=== PATIENT | female | born 1990 | race Caucasian/White ===

== ENCOUNTER 2016-08-18 22:13 | Emergency (ER) | payer BC ==
[2016-08-18] MEDS ORDERED: KETOROLAC 30 MG/ML VIAL IVP ONE (22:28)
[2016-08-18] MEDS ORDERED: METOCLOPRAMIDE HCL 10 MG/2 ML VIAL IVP ONE (22:28)
[2016-08-18] MEDS ORDERED: DIPHENHYDRAMINE HCL IV 50 MG/ML VIAL IVP ONE (22:28)
[2016-08-18] MEDS ORDERED: 0.9 % SODIUM CHLORIDE 1,000 ML BAG IV ONE (22:28)
--- NOTE | 2016-08-18 22:36 | Emergency Department Record ---
History of Present Illness - General Chief Complaint: Headache Migraine Stated Complaint: JOHNSON Time Seen by Provider: 08/18/16 22:25 Source: Patient Mode of Arrival: Ambulatory Limitations: No limitations - History of Present Illness Initial Comments: 26 yo female presents with a headache. She has a history of migraines and follows at [facility]. This migraine started this morning and is typical of her migraines. She has light sensitivity and nausea. No fevers. No new or atypical symptoms. Her last appointment with her neurologist was 6 months ago. MD Complaint: Headache, "Migraine" Onset/Timin -: Hour(s) Onset Description: Gradual, Awoke with symptoms Location: Frontal, Neck, Right Severity: Moderate Severity scale (1-10): 10 Quality: Aching, Sharp, Throbbing, Similar to previous headaches Consistency: Constant Improves With: Nothing Worsens With: Light Treatments Prior to Arrival: Ibuprofen - Related Data Previous Rx's Medication Instructions Recorded Metoclopramide HCl [Reglan] 10 mg PO Q12H PRN #15 tablet 08/18/16 Allergies Allergy/AdvReac Type Severity Reaction Status Date / Time No Known Drug Allergies Allergy Verified 08/18/16 22:17 Travel Screening - Travel/Exposure Within Last 30 Days Have you traveled within the last 30 days?: No - Travel/Exposure Within Last Year Have you traveled outside the [place] in the last year?: No - Additonal Travel Details Have you been exposed to anyone with a communicable illness?: No - Travel Symptoms Symptom Screening: None Review of Systems Constitutional: Denies: Chills, Fever, Malaise, Weakness Eyes: Denies: Eye discharge, Eye pain, Photophobia, Vision change ENT: Denies: Congestion, Throat pain Respiratory: Denies: Cough, Dyspnea, Hemoptysis, Stridor, Wheezes Cardiovascular: Denies: Chest pain, Palpitations, Syncope Endocrine: Denies: Fatigue Gastrointestinal: Reports: Nausea. Denies: Abdominal pain, Diarrhea, Vomiting Genitourinary: Denies: Dysuria, Urgency Musculoskeletal: Denies: Arthralgia, Back pain, Joint swelling, Myalgia, Neck pain Skin: Denies: Bruising, Change in color, Rash Neurological: Reports: Headache Psychiatric: Denies: Anxiety Hematological/Lymphatic: Denies: Blood Clots, Easy bleeding, Easy bruising, Swollen glands Past Medical History - SOCIAL HISTORY Smoking Status: Current every day smoker Alcohol Use: Rare Drug Use: None - RESPIRATORY Hx Respiratory Disorders: Yes Hx Asthma: Yes - CARDIOVASCULAR Hx Cardio Disorders: No - NEURO Hx Neuro Disorders: Yes Hx of Migraines: Yes - GI Hx GI Disorders: Yes Hx Abdominal Pain: Yes (periumbilical) Hx Nausea/Vomiting: Yes Hx Wt Loss/Wt Gain: Yes (gained 40lbs in 2 years) Comment:: diarrhea - Hx Genitourinary Disorders: No - ENDOCRINE Hx Endocrine Disorders: No - MUSCULOSKELETAL Hx Musculoskeletal Disorders: Yes - PSYCH Hx Psych Problems: Yes Hx Anxiety: Yes Hx Depression: Yes - HEMATOLOGY/ONCOLOGY Hx Hematology/Oncology Disorders: Yes Hx Bruising: Yes Family Medical History Any Significant Family History?: Yes Family Hx Comment (NOT TO BE USED IN PLACE OF ITEMS BELOW): dad-parkinson's Hx Cancer: Mother *Cancer Comment: cancerous colon polyps Hx Diabetes: Grandparents Physical Exam - General General Appearance: Alert, Oriented x3, Cooperative, No acute distress Limitations: No limitations - Head Head exam: Atraumatic, Normal inspection - Eye Eye exam: Normal appearance, PERRL. negative: Conjunctival injection, Scleral icterus - ENT ENT exam: Normal exam, Mucous membranes moist, Normal external ear exam, Normal orophraynx Ear exam: Normal external inspection. negative: External canal tenderness Nasal Exam: Normal inspection. negative: Discharge, Sinus tenderness Mouth exam: Normal external inspection, Tongue normal Teeth exam: Normal inspection. negative: Dental caries Throat exam: Normal inspection. negative: Tonsillar erythema, Tonsillar exudate - Neck Neck exam: Normal inspection, Full ROM. negative: Tenderness - Respiratory Respiratory exam: Normal lung sounds bilaterally. negative: Respiratory distress - Cardiovascular Cardiovascular Exam: Regular rate, Normal rhythm, Normal heart sounds - GI/Abdominal GI/Abdominal exam: Soft, Normal bowel sounds. negative: Tenderness - Rectal Rectal exam: Deferred - exam: Deferred - Extremities Extremities exam: Normal inspection, Full ROM, Normal capillary refill. negative: Tenderness - Back Back exam: Reports: Normal inspection, Full ROM. Denies: Muscle spasm, Rash noted, Tenderness - Neurological Neurological exam: Alert, CN II-XII intact, Normal gait, Oriented X3. negative : Altered, Motor sensory deficit - Psychiatric Psychiatric exam: Normal affect, Normal mood. negative: Agitated, Anxious - Skin Skin exam: Dry, Intact, Normal color, Warm Course Vital Signs 08/18/16 22:17 Temperature 97.9 F Pulse Rate 79 Respiratory 18 Rate Blood Pressure 110/73 Pulse Ox 99 - Reevaluation(s) Reevaluation #1: EMR reviewed from the previous ED visit including medications given 08/18/16 22:36 Reevaluation #2: The patient has gone from a 10 to a 1/0 She is much improved We discussed home care and followup with PCP as well as reasons to return to the ED 08/18/16 23:41 Disposition Disposition: Discharge Clinical Impression: Migraine Qualifiers: Migraine type: unspecified Status migrainosus presence: without status migrainosus Intractability: intractable Qualified Code(s): G43.919 - Migraine, unspecified, intractable, without status migrainosus Disposition: Home, Self-Care Condition: (1) Good Instructions: Migraine Headache (ED) Additional Instructions: Call your doctor for close followup Return if you have return of pain or concerns. Prescriptions: Metoclopramide HCl [Reglan] 10 mg PO Q12H PRN #15 tablet PRN Reason: Headache Forms: Patient Portal Access Time of Disposition: 23:42
== END 2016-08-18 23:54 | disposition home or self-care (01) ==
LOC: ER 22:13
DX: G43.919 Migraine, unspecified, intractable, without status migrainosus (principal); R11.0 Nausea; H53.149 Visual discomfort, unspecified
CPT/HCPCS: 99284 ×2; 96374; 96375; J1885; J1200; J2765; J7030

== ENCOUNTER 2017-08-11 23:07 | Emergency (ER) | payer BC, MEDICAID ==
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
[2017-08-11] MEDS ORDERED: 0.9 % SODIUM CHLORIDE 1,000 ML BAG IV ONE (23:31)
[2017-08-11 23:34] LABS: BASO % 0.6 % (0-6); GRAN % 57.1 % (47-80); HEMATOCRIT 41.1 % (35.0-47.0); LYMPH % 28.9 % (16-45); MEAN CELL VOLUME 90.5 fl (81-97); MEAN CORPUSCULAR HEMOGLOBIN 30.8 pg (27-33); MEAN CORPUSCULAR HGB CONC 34.1 g/dl (32-36); MEAN PLATELET VOLUME 11.1 fl (7.4-10.4); MONO % 11.4 % (0-9); PLATELET COUNT 279 K/uL (130-400); RED BLOOD COUNT 4.54 M/uL (3.80-5.40); RED CELL DISTRIBUTION WIDTH 13.3 % (11.5-14.5); WHITE BLOOD COUNT W/O DIFF 12.5 K/uL (4.2-12.2)
[2017-08-11 23:55] LABS: URINE APPEARANCE CLEAR; URINE BILIRUBIN NEGATIVE (NEGATIVE); URINE BLOOD NEGATIVE (NEGATIVE); URINE COLOR YELLOW; URINE GLUCOSE (UA) NEGATIVE (NEGATIVE); URINE KETONE NEGATIVE (NEGATIVE); URINE LEUKOCYTE ESTERASE NEGATIVE (NEGATIVE); URINE NITRITE NEGATIVE (NEGATIVE); URINE PROTEIN NEGATIVE (NEGATIVE); URINE UROBILINOGEN 0.2 E.U./dL (0.20 - 1.00)
[2017-08-11 23:57] LABS: HCG,QUALITATIVE URINE NEGATIVE (NEGATIVE)
[2017-08-11 23:58] LABS: BLOOD UREA NITROGEN 15 mg/dL (6-20); CREATININE 0.6 mg/dL (0.5-0.9); EST GLOMERULAR FILTRATION RATE > 60 mL/min
[2017-08-11 23:58] LABS: AMPHETAMINE SCREEN URINE NOT DETECTED; BARBITURATE SCREEN URINE NOT DETECTED; BENZODIAZEPINE SCREEN URINE NOT DETECTED; COCAINE SCREEN URINE NOT DETECTED; METHADONE SCREEN URINE NOT DETECTED; METHAMPHETAMINE SCREEN NOT DETECTED; OPIATE SCREEN URINE NOT DETECTED; OXYCODONE SCREEN URINE NOT DETECTED; PHENCYCLIDINE SCREEN URINE NOT DETECTED; PROPOXYPHENE SCREEN URINE NOT DETECTED; THC SCREEN URINE NOT DETECTED; TRICYCLIC ANTIDEPRESSANT SCRN NOT DETECTED
[2017-08-11 23:59] LABS: TOTAL PROTEIN 7.4 g/dL (6.6-8.7)
[2017-08-12 00:01] LABS: GLUCOSE,RANDOM 87 mg/dL (74-109)
[2017-08-12 00:03] LABS: ALB/GLOB RATIO 1.7 (1.1-1.8); ALBUMIN 4.7 g/dL (4.0-5.0); ALT/SGPT 12 U/L (<33); AST/SGOT 13 U/L (10.0-35.0)
[2017-08-12 00:04] LABS: ALKALINE PHOSPHATASE 59 U/L (35-104)
[2017-08-12] MEDS ORDERED: 0.9 % SODIUM CHLORIDE 1,000 ML BAG IV ONE (00:07)
[2017-08-12] MEDS ORDERED: DIPHENHYDRAMINE HCL IV 50 MG/ML VIAL IVP ONE (00:11)
[2017-08-12] MEDS ORDERED: METHYLPREDNISOLONE PF 125MG/VIAL IM ONE (00:11)
[2017-08-12] MEDS ORDERED: AZITHROMYCIN 500 MG TABLET PO ONE (00:14)
[2017-08-12] MEDS ORDERED: CEFTRIAXONE 250 MG VIAL IM ONE (00:14)
[2017-08-12] MEDS ORDERED: FLUCONAZOLE 100 MG TABLET PO ONE (01:24)
[2017-08-12] MEDS ORDERED: METRONIDAZOLE 250 MG TABLET PO ONE (01:24)
--- NOTE | 2017-08-12 11:22 | CT SCAN REPORT ---
EXAM: EMERGENCY CT OF THE ABDOMEN AND PELVIS HISTORY: RIGHT LOWER QUADRANT PAIN, APPY/OVARY. TECHNIQUE: Axial CT scan of the abdomen and pelvis was performed following the intravenous administration of 95 ml of Omnipaque 300 as the IV contrast. No oral contrast was utilized at the referring physician's request. A preliminary report was provided by [facility]. Comparison: CT of the abdomen and pelvis 09/10/15. FINDINGS: No calcified gallstones are seen within the gallbladder. No definite hepatic, splenic, adrenal, pancreatic, or renal mass identified. Postop changes right hip creating some artifact in the pelvis. This was present previously as well. Evaluation of the bowel is very limited without oral contrast, however, I believe the appendix is visualized as a normal caliber structure with no appendicitis identified. There is a very small amount of free fluid in the pelvis. There is probably an approximately 3.1 cm left ovarian cyst present. This was not identified previously. No free intraperitoneal air identified. IMPRESSION: 1. PROBABLE 3.1 CM LEFT OVARIAN CYST. SMALL AMOUNT OF NONSPECIFIC FREE FLUID IN THE PELVIS. NO FREE AIR EVIDENT. 2. POSTOP CHANGES RIGHT HIP. 3. NO APPENDICITIS EVIDENT. NO FREE AIR IS SEEN. JOB NUMBER: [id number] [facility]
[2017-08-13 18:01] LABS: GC SPECIMEN TYPE Vaginal
== END 2017-08-12 01:32 | disposition short-term general hospital (02) ==
LOC: ER 23:07
DX: R10.31 Right lower quadrant pain (principal); N76.0 Acute vaginitis; N83.202 Unspecified ovarian cyst, left side; R11.0 Nausea; R05 Cough; R53.1 Weakness
CPT/HCPCS: 74177; 80053; 80305; 81003; 81025; 85025; 87210; 87880; 96372; 96374; 99284; J1200; J2930